=== PATIENT | female | born 1980 | race Caucasian/White ===

== ENCOUNTER → 2016-09-28 | Outpatient (CLI) | payer OTHER ==
--- NOTE | 2016-09-28 13:01 | XR ---
EXAMINATION TYPE: XR chest 2V DATE OF EXAM: 09/28/2016 COMPARISON: NONE HISTORY: Presurgical study. History of asthma. TECHNIQUE: Frontal and lateral views of the chest are obtained. FINDINGS: There is no focal air space opacity, pleural effusion, or pneumothorax seen. The cardiac silhouette size is within normal limits. The osseous structures are intact. Cholecystectomy clips a re noted. IMPRESSION: No acute cardiopulmonary process.
== END | disposition home or self-care (01) ==
LOC: RADXRMAIN 12:25
PROVIDERS: ATTEND Family Medicine
DX: Z01.811 Encounter for preprocedural respiratory examination (principal)
CPT/HCPCS: 71020

== ENCOUNTER → 2017-06-07 | Outpatient (CLI) | payer OTHER ==
--- NOTE | 2017-06-07 07:45 | US ---
EXAMINATION TYPE: US abdomen complete DATE OF EXAM: 06/07/2017 COMPARISON: NONE CLINICAL HISTORY: R11.0 nausea, R19.7 Diarrhea Unspecified. Pt states nausea and diarrhea x few month s/ GB removed approx 10 years ago EXAM MEASUREMENTS: Liver Length: 18.0 cm CBD: 1.0 cm Spleen: 10.1 cm Right Kidney: 9.8 x 4.4 x 4.5 cm Left Kidney: 10.9 x 5.1 x 5.0 cm Pancreas: wnl, tail obscured by overlying bowel gas Liver: Difficult to penetrate, heterogeneous, enlarged. This finding is most commonly related to hep atic steatosis and limits evaluation for underlying masses. Gallbladder: Surgically absent Evidence for sonographic Ward's sign: No CBD: post thomas Spleen: wnl Right Kidney: wnl, lower pole gassed out Left Kidney: wnl Upper IVC: wnl Abd Aorta: wnl The intrahepatic portion of the IVC and proximal abdominal aorta are within normal limits. The visu alized portions of the pancreas are homogenous. The spleen is unremarkable. Kidneys are symmetric a nd free of hydronephrosis. No renal lesions are seen. IMPRESSION: 1. Findings most commonly related to hepatic steatosis. Correlate with liver function tests. 2. Dilated common bile duct likely relates to the post cholecystectomy status.
[2017-06-08 06:03] LABS: EBV - EA (IgG) 8.5 U/mL (<9.0); EBV - VCA IgM <10.0 U/mL (<36.0)
== END | disposition home or self-care (01) ==
LOC: RADUSWWP 06:53
PROVIDERS: ATTEND Family Medicine
DX: K83.8 Other specified diseases of biliary tract (principal); R11.0 Nausea; R19.7 Diarrhea, unspecified; R53.83 Other fatigue; Z90.49 Acquired absence of other specified parts of digestive tract
CPT/HCPCS: 36415; 76700; 86663; 86664; 86665; 87801

== ENCOUNTER → 2018-01-07 | Outpatient (CLI) | payer OTHER ==
--- NOTE | 2018-01-07 16:12 | XR ---
EXAMINATION TYPE: XR lumbar spine 2 or 3V DATE OF EXAM: 01/07/2018 COMPARISON: 04/30/2008 HISTORY: Lumbar fusion TECHNIQUE: Three-view lumbar spine FINDINGS: Pedicle screws been placed L4-L5 and S1. Disc spaces are present L4-5 L5-S1. L1-L3 pedicles are intact. There 5 lumbar-type vertebral bodies. Remaining disc heights are preserved . Vertebral body heights are preserved. IMPRESSION: 1. Postsurgical changes L4-S1 discussed above.
== END ==
LOC: RADXRMAIN 11:13
PROVIDERS: ATTEND Neurological Surgery
DX: M43.26 Fusion of spine, lumbar region (principal); Z98.890 Other specified postprocedural states
CPT/HCPCS: 72100

== ENCOUNTER 2018-01-12 10:13 | Observation (INO) | payer OTHER ==
[2018-01-12] MEDS ORDERED: ASPIRIN 81 MG PO STA (10:38)
[2018-01-12] MEDS ORDERED: NITROGLYCERIN OINT 1 INCH/GM PACKET TOPICAL STA (10:38)
[2018-01-12] MEDS ORDERED: SODIUM CHLORIDE 0.9% 500 ML IV STA (10:38)
--- NOTE | 2018-01-12 10:41 | ED ---
General Adult HPI - General Chief complaint: Chest Pain Stated complaint: CHEST PAIN Time Seen by Provider: 01/12/18 10:15 Source: patient, RN notes reviewed Mode of arrival: wheelchair Limitations: no limitations - History of Present Illness Initial comments: This is a 37-year-old female who presents emergency Department with a past medical history significant for asthma and 2 back surgeries. Patient states he takes [place] for her back pain. Patient comes in today complaining of a heaviness in her chest as if someone was sitting on her chest. Patient states the pain started last night it has waxed and waned a little but nothing in particular seems to make it better or worse. Patient states the pain radiates to her left shoulder she is mildly short of breath and nauseated. Patient denies any vomiting. Patient denies any episodes of diaphoresis. Patient denies any recent fever chills or cough. Patient denies any palpitations. Patient denies any lightheadedness dizziness or near syncopal episode. Patient denies any headache patient denies numbness weakness. Patient denies abdominal pain. Patient denies any long trips or travel. Patient denies any calf tenderness or leg swelling - Related Data Home Medications Medication Instructions Recorded Confirmed Levothyroxine Sodium [Synthroid] 75 mcg PO QAM 08/26/14 12/21/14 Ergocalciferol [Vitamin D2 50,000 unit PO WE 12/13/14 12/21/14 (DRISDOL)] Cetirizine HCl [Zyrtec] 10 mg PO DAILY 12/21/14 12/21/14 Citalopram Hydrobromide [CeleXA] 40 mg PO DAILY 12/21/14 12/21/14 Montelukast [Singulair] 10 mg PO HS 12/21/14 12/21/14 buPROPion HCL [Bupropion Xl] 300 mg PO HS 12/21/14 12/21/14 Previous Rx's Medication Instructions Recorded HYDROcodone/APAP 5-325MG [[place] 1 each PO Q4HR PRN #30 tab 12/22/14 5-325] Ibuprofen [Motrin] 600 mg PO Q6HR PRN #60 tab 12/22/14 Allergies Allergy/AdvReac Type Severity Reaction Status Date / Time codeine AdvReac Nausea & Verified 01/12/18 10:22 Vomiting meperidine HCl [From Demerol] AdvReac Nausea & Verified 01/12/18 10:22 Vomiting Review of Systems ROS Statement: Those systems with pertinent positive or pertinent negative responses have been documented in the HPI. ROS Other: All systems not noted in ROS Statement are negative. Past Medical History Past Medical History: Asthma History of Any Multi-Drug Resistant Organisms: None Reported Past Surgical History: Back Surgery, Cholecystectomy, Tonsillectomy, Tubal Ligation Additional Past Surgical History / Comment(s): knee surgery Past Psychological History: Anxiety, Depression Smoking Status: Never smoker Past Alcohol Use History: Rare Past Drug Use History: None Reported General Exam - General Exam Comments Initial Comments: GENERAL: Patient is well-developed and well-nourished. Patient is nontoxic and well- hydrated and is in mild distress. ENT: Neck is soft and supple. No significant lymphadenopathy is noted. Oropharynx is clear. Moist mucous membranes. Neck has full range of motion without eliciting any pain. EYES: The sclera were anicteric and conjunctiva were pink and moist. Extraocular movements were intact and pupils were equal round and reactive to light. Eyelids were unremarkable. PULMONARY: Unlabored respirations. Good breath sounds bilaterally. No audible rales rhonchi or wheezing was noted. CARDIOVASCULAR: There is a regular rate and rhythm without any murmurs gallops or rubs. ABDOMEN: Soft and nontender with normal bowel sounds. No palpable organomegaly was noted. There is no palpable pulsatile mass. SKIN: Skin is clear with no lesions or rashes and otherwise unremarkable. NEUROLOGIC: Patient is alert and oriented x3. Cranial nerves II through XII are grossly intact. Motor and sensory are also intact. Normal speech, volume and content. Symmetrical smile. MUSCULOSKELETAL: Normal extremities with adequate strength and full range of motion. No lower extremity swelling or edema. No calf tenderness. LYMPHATICS: No significant lymphadenopathy is noted PSYCHIATRIC: Normal psychiatric evaluation. Limitations: no limitations Course Vital Signs 01/12/18 01/12/18 10:19 13:44 Temperature 98.1 F 98.0 F Pulse Rate 95 84 Respiratory 18 18 Rate Blood Pressure 124/80 101/59 O2 Sat by Pulse 97 95 Oximetry Medical Decision Making - Medical Decision Making EKG shows normal sinus rhythm at 89 bpm ND interval is 152 QRS is 84 QT interval 360 QTC is 438. No ST segment elevation or depression Chest x-ray shows no acute abnormalities. CT to rule out PE was negative for PE. I went back into reevaluate the patient on at least 3 occasions in all 3 times patient states she continued to have chest discomfort described as heaviness. I spoke with [facility] hospitalist agreed to admit the patient admitted the patient I consult cardiology I wrote admitting orders. - Lab Data Result diagrams: 01/12/18 10:57 01/12/18 10:57 Lab Results 01/12/18 01/12/18 01/12/18 Range/Units 10:57 10:57 10:57 WBC 6.0 (3.8-10.6) k/uL RBC 4.29 (3.80-5.40) m/uL Hgb 13.8 (11.4-16.0) gm/dL Hct 39.9 (34.0-46.0) % MCV 93.1 (80.0-100.0) fL MCH 32.1 (25.0-35.0) pg MCHC 34.5 (31.0-37.0) g/dL RDW 12.2 (11.5-15.5) % Plt Count 232 (150-450) k/uL Neutrophils % 58 % Lymphocytes % 30 % Monocytes % 6 % Eosinophils % 3 % Basophils % 1 % Neutrophils # 3.5 (1.3-7.7) k/uL Lymphocytes # 1.8 (1.0-4.8) k/uL Monocytes # 0.3 (0-1.0) k/uL Eosinophils # 0.2 (0-0.7) k/uL Basophils # 0.0 (0-0.2) k/uL PT (9.0-12.0) sec INR (<1.2) APTT (22.0-30.0) sec D-Dimer (<0.60) mg/L FEU Sodium 140 (137-145) mmol/L Potassium 4.2 (3.5-5.1) mmol/L Chloride 108 H (98-107) mmol/L Carbon Dioxide 26 (22-30) mmol/L Anion Gap 6 mmol/L BUN 9 (7-17) mg/dL Creatinine 0.78 (0.52-1.04) mg/dL Est GFR (CKD-EPI)AfAm >90 (>60 ml/min/1.73 sqM) Est GFR (CKD-EPI)NonAf >90 (>60 ml/min/1.73 sqM) Glucose 115 H (74-99) mg/dL Calcium 9.2 (8.4-10.2) mg/dL Magnesium 2.1 (1.6-2.3) mg/dL Total Bilirubin 0.6 (0.2-1.3) mg/dL AST 31 (14-36) U/L ALT 39 (9-52) U/L Alkaline Phosphatase 75 (38-126) U/L Total Creatine Kinase 61 (30-135) U/L CK-MB (CK-2) 0.7 (0.0-2.4) ng/mL CK-MB (CK-2) Rel Index 1.1 Troponin I <0.012 (0.000-0.034) ng/mL Total Protein 6.9 (6.3-8.2) g/dL Albumin 3.9 (3.5-5.0) g/dL Amylase 42 (30-110) U/L Lipase 71 (23-300) U/L 01/12/18 Range/Units 10:57 WBC (3.8-10.6) k/uL RBC (3.80-5.40) m/uL Hgb (11.4-16.0) gm/dL Hct (34.0-46.0) % MCV (80.0-100.0) fL MCH (25.0-35.0) pg MCHC (31.0-37.0) g/dL RDW (11.5-15.5) % Plt Count (150-450) k/uL Neutrophils % % Lymphocytes % % Monocytes % % Eosinophils % % Basophils % % Neutrophils # (1.3-7.7) k/uL Lymphocytes # (1.0-4.8) k/uL Monocytes # (0-1.0) k/uL Eosinophils # (0-0.7) k/uL Basophils # (0-0.2) k/uL PT 9.5 (9.0-12.0) sec INR 1.0 (<1.2) APTT 21.6 L (22.0-30.0) sec D-Dimer 0.60 H (<0.60) mg/L FEU Sodium (137-145) mmol/L Potassium (3.5-5.1) mmol/L Chloride (98-107) mmol/L Carbon Dioxide (22-30) mmol/L Anion Gap mmol/L BUN (7-17) mg/dL Creatinine (0.52-1.04) mg/dL Est GFR (CKD-EPI)AfAm (>60 ml/min/1.73 sqM) Est GFR (CKD-EPI)NonAf (>60 ml/min/1.73 sqM) Glucose (74-99) mg/dL Calcium (8.4-10.2) mg/dL Magnesium (1.6-2.3) mg/dL Total Bilirubin (0.2-1.3) mg/dL AST (14-36) U/L ALT (9-52) U/L Alkaline Phosphatase (38-126) U/L Total Creatine Kinase (30-135) U/L CK-MB (CK-2) (0.0-2.4) ng/mL CK-MB (CK-2) Rel Index Troponin I (0.000-0.034) ng/mL Total Protein (6.3-8.2) g/dL Albumin (3.5-5.0) g/dL Amylase (30-110) U/L Lipase (23-300) U/L Disposition Clinical Impression: Chest pain Disposition: ADMITTED IP TO THIS HOSP Referrals: Disha Reveles III, MD [Primary Care Provider] - 1-2 days Time of Disposition: 13:51
[2018-01-12 11:17] LABS: Basophils % (A) 1 %; Eosinophils # (A) 0.2 k/uL (0-0.7); Eosinophils % (A) 3 %; HCT 39.9 % (34.0-46.0); HGB 13.8 gm/dL (11.4-16.0); Lymphocytes # (A) 1.8 k/uL (1.0-4.8); Lymphocytes % (A) 30 %; MCH 32.1 pg (25.0-35.0); MCHC 34.5 g/dL (31.0-37.0); MCV 93.1 fL (80.0-100.0); Mean Platelet Volume 7.7; Monocytes # (A) 0.3 k/uL (0-1.0); Monocytes % (A) 6 %; Neutrophils # (A) 3.5 k/uL (1.3-7.7); Neutrophils % (A) 58 %; Platelet Count 232 k/uL (150-450); RBC 4.29 m/uL (3.80-5.40); RDW 12.2 % (11.5-15.5)
[2018-01-12 11:26] LABS: ALT 39 U/L (9-52); AST 31 U/L (14-36); Albumin 3.9 g/dL (3.5-5.0); Alkaline Phosphatase 75 U/L (38-126); Amylase 42 U/L (30-110); Anion Gap 6 mmol/L; Blood Urea Nitrogen 9 mg/dL (7-17); Calcium 9.2 mg/dL (8.4-10.2); Carbon Dioxide 26 mmol/L (22-30); Chloride 108 mmol/L (98-107); Glucose 115 mg/dL (74-99); Lipase 71 U/L (23-300); Magnesium 2.1 mg/dL (1.6-2.3); Potassium 4.2 mmol/L (3.5-5.1); Sodium 140 mmol/L (137-145); Total Bilirubin 0.6 mg/dL (0.2-1.3); Total Protein 6.9 g/dL (6.3-8.2)
[2018-01-12 11:33] LABS: Creatine Kinase 61 U/L (30-135)
[2018-01-12 11:46] LABS: Creatine Kinase MB 0.7 ng/mL (0.0-2.4); Troponin I <0.012 ng/mL (0.000-0.034)
--- NOTE | 2018-01-12 11:49 | XR ---
EXAMINATION TYPE: XR chest 2V DATE OF EXAM: 01/12/2018 COMPARISON: Prior chest 09/28/2016 HISTORY: Chest pain TECHNIQUE: Frontal and lateral views of the chest are obtained. FINDINGS: There is no focal air space opacity, pleural effusion, or pneumothorax seen. The cardiac silhouette size is within normal limits. The osseous structures are intact. Surgical clips present in the upper abdomen. There are overlying cardiac leads. IMPRESSION: No acute cardiopulmonary process.
[2018-01-12 12:25] LABS: Prothrombin Time 9.5 sec (9.0-12.0)
[2018-01-12 12:28] LABS: D-Dimer 0.6 mg/L FEU (<0.60); Partial Thromboplastin Time 21.6 sec (22.0-30.0)
--- NOTE | 2018-01-12 13:29 | CT ---
CT CHEST FOR PULMONARY EMBOLISM. EXAMINATION TYPE: CT chest angio for PE DATE OF EXAM: 01/12/2018 INDICATION: Chest pain CT DLP: 559 mGycm, Automated exposure control for dose reduction was used. CONTRAST: Patient injected with 69 mL of Isovue 370. COMPARISON: None TECHNIQUE: CT of the chest is performed on a spiral scan at 2 mm thick sections. Study is performed with intravenous contrast timed for evaluation for pulmonary embolism. This will limit additional po rtions of the evaluation. 3-D MIP images reconstructed by the technologist are reviewed on the compu ter in the coronal and sagittal planes. FINDINGS: No persistent filling defects are evident to suggest an acute pulmonary embolism. No mediastinal or hilar adenopathy enlarged by CT criteria is evident. The ascending aorta diameter at the level of the main pulmonary artery is 3.0 cm. The main pulmonary artery diameter at the bifur cation is 3.0 cm. Lung windows are clear. Limited CT section through the upper abdomen are unremarkable. IMPRESSIONS: 1. No acute pulmonary embolism.
[2018-01-12] MEDS ORDERED: NITROGLYCERIN SL TABS 0.4 MG TAB SUBLINGUAL PRN (13:57)
--- NOTE | 2018-01-12 15:05 | P.HPIM ---
History of Present Illness 37-year-old pleasant female came in with complaints of chest pain restarted yesterday constant with varying severity on and off in the day where is from sluggish status 10/19-08/19 radiating to the neck area patient had back surgeries in the past, no associated diaphoresis or shortness of breath no cough nonpleuritic not associated with food no worsening or relieving factors. Denied any lightheadedness dizziness. Pain is pressure-like sensation as a sharp in nature. Patient chest pain is reproducible. First set of troponin is negative EKG did not show any significant ST-T wave changes, sinus rhythm. CT angios the chest did not show any significant abnormality or pulmonary embolism Review of Systems REVIEW OF SYSTEMS: CONSTITUTIONAL: No fever, no malaise, no fatigue. HEENT: No recent visual problems or hearing problems. Denied any sore throat. CARDIOVASCULAR: No orthopnea, PND, no palpitations, no syncope. PULMONARY: No shortness of breath, no cough, no hemoptysis. GASTROINTESTINAL: No diarrhea, no nausea, no vomiting, no abdominal pain. Normoactive bowel sounds. NEUROLOGICAL: No headaches, no weakness, no numbness. HEMATOLOGICAL: Denies any bleeding or petechiae. GENITOURINARY: Denies any burning micturition, frequency, or urgency. MUSCULOSKELETAL/RHEUMATOLOGICAL: Denies any joint pain, swelling, or any muscle pain. ENDOCRINE: Denies any polyuria or polydipsia. The rest of the 14-point review of systems is negative. Past Medical History Past Medical History: Asthma History of Any Multi-Drug Resistant Organisms: None Reported Past Surgical History: Back Surgery, Cholecystectomy, Tonsillectomy, Tubal Ligation Additional Past Surgical History / Comment(s): knee surgery Past Psychological History: Anxiety, Depression Smoking Status: Never smoker Past Alcohol Use History: Rare Past Drug Use History: None Reported Medications and Allergies Home Medications Medication Instructions Recorded Confirmed Type Cetirizine HCl [Zyrtec] 10 mg PO DAILY 12/21/14 01/12/18 History Citalopram Hydrobromide [CeleXA] 40 mg PO DAILY 12/21/14 01/12/18 History Montelukast [Singulair] 10 mg PO HS 12/21/14 01/12/18 History buPROPion HCL [Bupropion Xl] 300 mg PO HS 12/21/14 01/12/18 History Levothyroxine Sodium [Synthroid] 100 mcg PO DAILY 01/12/18 01/12/18 History Allergies Allergy/AdvReac Type Severity Reaction Status Date / Time codeine AdvReac Nausea & Verified 01/12/18 14:15 Vomiting meperidine HCl [From Demerol] AdvReac Nausea & Verified 01/12/18 14:15 Vomiting Physical Exam Vitals: Vital Signs Temp Pulse Pulse Resp BP BP Pulse Ox 01/12/18 14:51 97.3 F L 80 18 110/67 95 01/12/18 13:44 98.0 F 84 18 101/59 95 01/12/18 10:19 98.1 F 95 18 124/80 97 Intake and Output 01/12/18 01/12/18 01/12/18 06:59 14:59 22:59 Other: Weight 102.5 kg PHYSICAL EXAMINATION: GENERAL: The patient is alert and oriented x3, not in any acute distress. Well developed, well nourished. HEENT: Pupils are round and equally reacting to light. EOMI. No scleral icterus. No conjunctival pallor. Normocephalic, atraumatic. No pharyngeal erythema. No thyromegaly. CARDIOVASCULAR: S1 and S2 present. No murmurs, rubs, or gallops. Reproducible chest pain PULMONARY: Chest is clear to auscultation, no wheezing or crackles. ABDOMEN: Soft, nontender, nondistended, normoactive bowel sounds. No palpable organomegaly. MUSCULOSKELETAL: No joint swelling or deformity. EXTREMITIES: No cyanosis, clubbing, or pedal edema. NEUROLOGICAL: Gross neurological examination did not reveal any focal deficits. SKIN: No rashes. Results CBC & Chem 7: 01/12/18 10:57 01/12/18 10:57 Labs: Abnormal Lab Results - Last 24 Hours (Table) 01/12/18 01/12/18 Range/Units 10:57 10:57 APTT 21.6 L (22.0-30.0) sec D-Dimer 0.60 H (<0.60) mg/L FEU Chloride 108 H (98-107) mmol/L Glucose 115 H (74-99) mg/dL Assessment and Plan Plan: -Chest pain we'll rule out acute coronary syndromes and unstable angina, patient chest pain appears to be musculoskeletal cardiology will evaluate the patient will repeat 2 more sets of troponins. Patient denied any family history of premature coronary artery disease -Asthma without any acute exacerbation -Anxiety and depression -Hypothyroidism continue with levothyroxine
[2018-01-12 15:09] VITALS: BMI 33.3
--- NOTE | 2018-01-12 15:43 | P.CRDCN ---
History of Present Illness History of present illness: This is a pleasant 37-year-old female with no significant past medical history she denies history of coronary artery disease, hypertension, dyslipidemia or diabetes mellitus. We've been asked to see in consultation for symptoms of chest pain. She states she developed a tight squeezing sensation of upper chest between shoulders started last night while watching TV. Pain radiates into left shoulder and into the left neck region. There are no specific aggravating or alleviating factors. She does describe some mild associated shortness of breath and ongoing nausea. The symptoms have been intermittent since they started last night. She denies palpitations, dizziness , vomiting or diaphoresis. She denies cough, fever or chills. At the time of my exam she is seen resting comfortably in bed with family at the bedside. She continues to complain of a dull ache sensation in the chest that is not made worse by deep inspiration or on palpation. EKG reveals sinus mechanism with no acute ST or T-wave abnormalities. Chest x-ray is negative for an acute cardiopulmonary process. CTA chest negative for pulmonary embolism with normal-appearing aorta. Laboratory data reviewed, hemoglobin 13.8, platelets 232, d-dimer 0.6, sodium 140, potassium 4.2, magnesium 2.1, creatinine 0.78, cardiac enzymes negative 1. She takes no daily cardiac medications and is never had a cardiac workup. Review of Systems At the time of my exam: CONSTITUTIONAL: Denies fever. Denies chills. EYES: Denies blurred vision. Denies vision changes. Denies eye pain. EARS, NOSE, MOUTH & THROAT: Denies headache. Denies sore throat. Denies ear pain. CARDIOVASCULAR: Complains of mild chest pain. Denies shortness of breath. Denies orthopnea. Denies PND. Denies palpitations. RESPIRATORY: Denies cough. GASTROINTESTINAL: Denies abdominal pain. Denies diarrhea. Denies constipation. Denies nausea. Denies vomiting. MUSCULOSKELETAL: Denies myalgias. INTEGUMENTARY: Denies pruitis. Denies rash. NEUROLOGIC: Denies numbness. Denies tingling. Denies weakness. PSYCHIATRIC: Denies anxiety. Denies depression. ENDOCRINE: Denies fatigue. Denies weight change. Denies polydipsia. Denies polyurina. GENITOURINARY: Denies burning, hematuria or urgency with micturation. HEMATOLOGIC: Denies history of anemia. Denies bleeding. Past Medical History Past Medical History: Asthma History of Any Multi-Drug Resistant Organisms: None Reported Past Surgical History: Back Surgery, Cholecystectomy, Tonsillectomy, Tubal Ligation Additional Past Surgical History / Comment(s): knee surgery Past Anesthesia/Blood Transfusion Reactions: No Reported Reaction Past Psychological History: Anxiety, Depression Smoking Status: Never smoker Past Alcohol Use History: Rare Past Drug Use History: None Reported Medications and Allergies Home Medications Medication Instructions Recorded Confirmed Type Cetirizine HCl [Zyrtec] 10 mg PO DAILY 12/21/14 01/12/18 History Citalopram Hydrobromide [CeleXA] 40 mg PO DAILY 12/21/14 01/12/18 History Montelukast [Singulair] 10 mg PO HS 12/21/14 01/12/18 History buPROPion HCL [Bupropion Xl] 300 mg PO HS 12/21/14 01/12/18 History Levothyroxine Sodium [Synthroid] 100 mcg PO DAILY 01/12/18 01/12/18 History Allergies Allergy/AdvReac Type Severity Reaction Status Date / Time codeine AdvReac Nausea & Verified 01/12/18 14:15 Vomiting meperidine HCl [From Demerol] AdvReac Nausea & Verified 01/12/18 14:15 Vomiting Physical Exam Vitals: Vital Signs Temp Pulse Pulse Resp BP BP Pulse Ox 01/12/18 15:17 80 18 01/12/18 14:51 97.3 F L 80 18 110/67 95 01/12/18 13:44 98.0 F 84 18 101/59 95 01/12/18 10:19 98.1 F 95 18 124/80 97 Intake and Output 01/12/18 01/12/18 01/12/18 06:59 14:59 22:59 Other: Voiding Method Toilet Weight 102.5 kg Blood presure 110/67 heart rate 80 afebrile maintaining oxygen saturation on room air. GENERAL: This is a 37-year-old female in no apparent distress at the time of my examination. Obese. HEENT: Head is atraumatic, normocephalic. Pupils are equal, round. Sclerae anicteric. Conjunctivae are clear. Mucous membranes of the mouth are moist. Neck is supple. There is no jugular venous distention. No carotid bruit is heard. LUNGS: Clear to auscultation no wheezes, rales or rhonchi. No chest wall tenderness is noted on palpation or with deep breathing. HEART: Regular rate and rhythm without murmurs, rubs or gallops. S1 and S2 heard. ABDOMEN: Soft, nontender. Bowel sounds are heard. No organomegaly noted. EXTREMITIES: No evidence of peripheral edema and no calf tenderness noted. VASCULAR: Radial and dorsalis pedis pulses palpated, no evidence of clubbing. NEUROLOGIC: Patient is awake, alert and oriented x3. Results 01/12/18 10:57 01/12/18 10:57 Cardiac Enzymes 01/12/18 01/12/18 Range/Units 10:57 10:57 AST 31 (14-36) U/L CK-MB (CK-2) 0.7 (0.0-2.4) ng/mL Troponin I <0.012 (0.000-0.034) ng/mL Coagulation 01/12/18 Range/Units 10:57 PT 9.5 (9.0-12.0) sec APTT 21.6 L (22.0-30.0) sec CBC 01/12/18 Range/Units 10:57 WBC 6.0 (3.8-10.6) k/uL RBC 4.29 (3.80-5.40) m/uL Hgb 13.8 (11.4-16.0) gm/dL Hct 39.9 (34.0-46.0) % Plt Count 232 (150-450) k/uL Comprehensive Metabolic Panel 01/12/18 Range/Units 10:57 Sodium 140 (137-145) mmol/L Potassium 4.2 (3.5-5.1) mmol/L Chloride 108 H (98-107) mmol/L Carbon Dioxide 26 (22-30) mmol/L BUN 9 (7-17) mg/dL Creatinine 0.78 (0.52-1.04) mg/dL Glucose 115 H (74-99) mg/dL Calcium 9.2 (8.4-10.2) mg/dL AST 31 (14-36) U/L ALT 39 (9-52) U/L Alkaline Phosphatase 75 (38-126) U/L Total Protein 6.9 (6.3-8.2) g/dL Albumin 3.9 (3.5-5.0) g/dL Current Medications Generic Name Dose Route Start Last Admin Trade Name Freq PRN Reason Stop Dose Admin Aspirin 325 mg 01/13/18 09:00 Aspirin PO DAILY [facility] Bupropion HCl 300 mg 01/12/18 21:00 Wellbutrin Xl PO HS [facility] Citalopram Hydrobromide 40 mg 01/13/18 09:00 Celexa PO DAILY [facility] Levothyroxine Sodium 100 mcg 01/13/18 06:30 Synthroid PO DAILY@0630 [facility] Loratadine 10 mg 01/13/18 09:00 Claritin PO DAILY [facility] Montelukast Sodium 10 mg 01/12/18 21:00 Singulair PO HS [facility] Nitroglycerin 1 inch 01/12/18 18:00 Nitro-Bid Oint TOPICAL Q6HR [facility] Nitroglycerin 0.4 mg 01/12/18 13:57 Nitrostat SUBLINGUAL Q5M PRN Chest Pain Intake and Output 01/12/18 01/12/18 01/12/18 06:59 14:59 22:59 Other: Voiding Method Toilet Weight 102.5 kg Patient Weight 01/13/18 06:59 Weight 102.5 kg 01/12/18 10:57 01/12/18 10:57 Assessment and Plan Assessment: ASSESSMENT Chest pain, atypical. Asthma Obesity, BMI 33.4 PLAN Continue to obtain serial cardiac enzymes to rule out an acute coronary event. Obtain 2-D echocardiogram and Doppler study to assess cardiac structure and function. If cardiac enzymes are unremarkable we will schedule for stress echocardiogram in the morning. Further recommendations to follow based upon clinical course. Thank you kindly for this consultation. Nurse Practitioner note has been reviewed, I agree with a documented findings and plan of care. Patient was seen and examined.
[2018-01-12 17:13] LABS: Creatine Kinase 55 U/L (30-135)
[2018-01-12 17:26] LABS: Creatine Kinase MB 0.5 ng/mL (0.0-2.4); Troponin I <0.012 ng/mL (0.000-0.034)
[2018-01-12] MEDS ORDERED: NITROGLYCERIN OINT 1 INCH/GM PACKET TOPICAL SCH (18:00)
[2018-01-12] MEDS: HYDROcodone/APAP 10-325MG 1 EACH TAB PO PRN ×2 (20:38→20:45)
[2018-01-12] MEDS ORDERED: LORATADINE 10 MG TAB PO SCH (21:00)
[2018-01-12] MEDS ORDERED: CITALOPRAM HYDROBROMIDE 20 MG TAB PO SCH (21:00)
[2018-01-12] MEDS ORDERED: buPROPion XL 300 MG TAB.ER.24H PO SCH (21:00)
[2018-01-12] MEDS ORDERED: MONTELUKAST 10 MG TAB PO SCH (21:00)
[2018-01-12 23:22] LABS: Creatine Kinase 53 U/L (30-135)
[2018-01-12 23:32] LABS: Creatine Kinase MB 0.4 ng/mL (0.0-2.4)
[2018-01-12 23:33] LABS: Troponin I <0.012 ng/mL (0.000-0.034)
[2018-01-13 04:05] LABS: Cholesterol 185 mg/dL (<200); HDL Cholesterol 39 mg/dL (40-60); LDL Cholesterol,Calculated 93 mg/dL (0-99); Triglycerides 263 mg/dL (<150)
[2018-01-13] MEDS ORDERED: LEVOTHYROXINE 100 MCG TAB PO SCH (06:30)
[2018-01-13 07:44] VITALS: RESP 16
[2018-01-13] MEDS: HYDROcodone/APAP 10-325MG 1 EACH TAB PO PRN (08:49)
[2018-01-13] MEDS ORDERED: CITALOPRAM HYDROBROMIDE 20 MG TAB PO SCH (09:00)
[2018-01-13] MEDS ORDERED: ASPIRIN 325 MG TAB PO SCH (09:00)
[2018-01-13] MEDS ORDERED: LORATADINE 10 MG TAB PO SCH (09:00)
--- NOTE | 2018-01-13 11:40 | ECHOF ---
Referral Reason:cp MEASUREMENTS -------- HEIGHT: 175.3 cm WEIGHT: 102.1 kg BP: 106/71 RVIDd: 3.2 cm (< 3.3) IVSd: 1.1 cm (0.6 - 1.1) LVIDd: 4.1 cm (3.9 - 5.3) LVPWd: 1.0 cm (0.6 - 1.1) IVSs: 1.4 cm LVIDs: 2.9 cm LVPWs: 1.3 cm LAESV Index (A-L): 8.56 ml/m Ao Diam: 3.2 cm (2.0 - 3.7) AV Cusp: 2.1 cm (1.5 - 2.6) LA Diam: 3.3 cm (2.7 - 3.8) EPSS: 0.5 cm MV E Prince: 0.70 m/s MV DecT: 290 ms MV A Prince: 0.60 m/s MV E/A Ratio: 1.16 RAP: 5.00 mmHg RVSP: 9.70 mmHg MV EF SLOPE: 136.35 mm/s (70 - 150) MV EXCURSION: 1.96 cm (> 18.000) FINDINGS -------- Sinus rhythm. This was a technically adequate study. The left ventricular size is normal. There is borderline concentric left ventricular hypertrophy. Overall left ventricular systolic function is normal with, an EF between 55 - 60 %. The right ventricle is normal in size and function. Normal LA size by volume 22+/-6 ml/m2. The right atrium is normal in size. The aortic valve is trileaflet, and appears structurally normal. No aortic stenosis or regurgitation. The mitral valve is normal. There is trace mitral regurgitation. Trace tricuspid regurgitation present. Right ventricular systolic pressure is normal at < 35 mmHg. The right ventricular systolic pressure, as measured by Doppler, is 9.70mmHg. Trace/mild (physiologic) pulmonic regurgitation. The aortic root size is normal. Normal inferior vena cava with normal inspiratory collapse consistent with estimated right atrial pre ssure of 5 mmHg. There is no pericardial effusion. CONCLUSIONS -------- 1. Sinus rhythm. 2. This was a technically adequate study. 3. The left ventricular size is normal. 4. There is borderline concentric left ventricular hypertrophy. 5. Overall left ventricular systolic function is normal with, an EF between 55 - 60 %. 6. Normal LA size by volume 22+/-6 ml/m2. 7. The aortic valve is trileaflet, and appears structurally normal. No aortic stenosis or regurgitati on. 8. There is trace mitral regurgitation. 9. Trace tricuspid regurgitation present. 10. Right ventricular systolic pressure is normal at < 35 mmHg. 11. Trace/mild (physiologic) pulmonic regurgitation. 12. The aortic root size is normal. 13. There is no pericardial effusion. [employer]ING OFFICER: Vel Chicas RDCS
[2018-01-13 11:58] VITALS: BP 108/73; PULSE 99; TEMP 98.4
--- NOTE | 2018-01-13 12:13 | ECHOS ---
STRESS ECHOCARDIOGRAM DATE OF SERVICE: 01/13/2018 INDICATIONS: Chest pain. MEDICATIONS: BASELINE HEART RATE: 97 BASELINE BLOOD PRESSURE: 97/59 MAXIMUM HEART RATE: 155 MAXIMUM BLOOD PRESSURE: 143/58 85% MPHR: 154 100% MPHR: 181 METS: 10.3 MAXIMUM STAGE REACHED: III TOTAL EXERCISE TIME: 9 minutes CLINICAL INFORMATION: Baseline rhythm is sinus mechanism, rate of 97, normal axis and intervals. Minor nonspecific ST-T wave changes. Baseline blood pressure 97/59 mmHg. Patient exercised on Sreedhar protocol for 9 minute reaching peak rate 155 beats per minute which is equal to 86% maximum predicted heart rate. Peak blood pressure 143/58 mmHg. Test was terminated secondary to fatigue. There was no chest pain. Electrocardiograph monitoring revealed no evidence of diagnostic ischemic ST deviation. Baseline echocardiogram revealed normal wall motion. At peak exercise, there was normal wall motion augmentation with no hypokinesis or dyskinesis. CONCLUSION: 1. Good exercise tolerance with normal electrocardiograph response to exercise. 2. Normal stress echocardiogram with no evidence of stress-induced ischemia. MMODL / IJN: [id number] /
--- NOTE | 2018-01-13 14:20 | P.PN ---
Subjective Patient is seen and examined in no acute distress. She can taste complaining of a dull ache noted in the chest. Upon further discussion she does state that she did do some heavy lifting and moving around her home. His prior to having this chest discomfort. Cardiac enzymes negative 3, LDL 93, HDL 39. Blood pressure 108/73 heart rate 99 afebrile maintaining oxygen saturation on room air. Repeat EKG and telemetry tracings have been unremarkable. Echocardiogram obtained reveals preserved left ventricular systolic function with ejection fraction 50-60%. Objective - Vital Signs Vital signs: Vital Signs Temp 98.4 F 01/13/18 11:56 Pulse 99 01/13/18 11:56 Resp 16 01/13/18 11:56 BP 108/73 01/13/18 11:56 Pulse Ox 97 01/13/18 11:56 Intake & Output 01/12/18 01/13/18 01/13/18 18:59 06:59 18:59 Intake Total 222 222 Balance 222 222 Weight 102.5 kg 102.058 kg Intake: Oral 222 222 Other: Voiding Method Toilet Toilet - Exam GENERAL: Well-appearing, well-nourished and in no acute distress. NECK: Supple without JVD or thyromegaly. LUNGS: Breath sounds clear to auscultation bilaterally. Respiration equal and unlabored. No wheezes, rales or rhonchi. HEART: Regular rate and rhythm without murmurs, rubs or gallops. S1 and S2 heard. EXTREMITIES: Normal range of motion, no edema. No clubbing or cyanosis. Peripheral pulses intact. - Labs CBC & Chem 7: 01/12/18 10:57 01/12/18 10:57 Labs: Abnormal Lab Results - Last 24 Hours (Table) 01/12/18 Range/Units 10:57 Triglycerides 263 H (<150) mg/dL HDL Cholesterol 39 L (40-60) mg/dL Assessment and Plan Assessment: ASSESSMENT Chest pain, atypical. Asthma Obesity, BMI 33.4 PLAN Proceed with stress echocardiogram to assess her chest induced cardiac ischemia. If stress test is normal she is stable from a cardiac perspective. Lifestyle modifications recommended for diet and exercise to lose weight. Follow up with primary care physician upon discharge. Nurse Practitioner note has been reviewed, I agree with a documented findings and plan of care. Patient was seen and examined.
--- NOTE | 2018-01-13 14:30 | P.DS ---
Providers Date of admission: 01/12/18 14:14 Attending physician: Kyara Ervin Consults: 01/12/18 13:58 Consult Physician Urgent Consulting Provider: [facility] Consult Reason/Comments: Chest pain Do you want consulting provider notified?: Yes Primary care physician: Disha Singh [facility] Hospital Course: 37-year-old doesn't female admitted with chest pain rule out acute Syndromes after Which Patient Underwent Stress Test Which Was Negative Patient the Chest Pain Either Is Either Musculoskeletal or Gastroesophageal Reflux Disease Patient Will Be Prescribed M Gibson Proton Pump Inhibitor for 14 Days and Patient Was Asked to Use Tylenol for Musculoskeletal Chest Pain Will Be Discharged with Close Follow-Up with Primary Care Physician As an Outpatient. PHYSICAL EXAMINATION: GENERAL: The patient is alert and oriented x3, not in any acute distress. Well developed, well nourished. HEENT: Pupils are round and equally reacting to light. EOMI. No scleral icterus. No conjunctival pallor. Normocephalic, atraumatic. No pharyngeal erythema. No thyromegaly. CARDIOVASCULAR: S1 and S2 present. No murmurs, rubs, or gallops. PULMONARY: Chest is clear to auscultation, no wheezing or crackles. ABDOMEN: Soft, nontender, nondistended, normoactive bowel sounds. No palpable organomegaly. MUSCULOSKELETAL: No joint swelling or deformity. EXTREMITIES: No cyanosis, clubbing, or pedal edema. NEUROLOGICAL: Gross neurological examination did not reveal any focal deficits. SKIN: No rashes. For other chronic medical problems and hospitalization course please refer to my HPI Plan - Discharge Summary Discharge Rx Participant: No New Discharge Prescriptions: New Omeprazole [PriLOSEC] 40 mg PO -BRKFST #14 capsule. No Action Cetirizine HCl [Zyrtec] 10 mg PO HS Citalopram Hydrobromide [CeleXA] 40 mg PO HS Montelukast [Singulair] 10 mg PO HS buPROPion HCL [Bupropion Xl] 300 mg PO HS Levothyroxine Sodium [Synthroid] 100 mcg PO DAILY HYDROcodone/APAP 10-325MG [Joes 10-325] 1 tab PO Q6HR PRN PRN Reason: Pain Discharge Medication List Cetirizine HCl [Zyrtec] 10 mg PO HS 12/21/14 [History] Citalopram Hydrobromide [CeleXA] 40 mg PO HS 12/21/14 [History] Montelukast [Singulair] 10 mg PO HS 12/21/14 [History] buPROPion HCL [Bupropion Xl] 300 mg PO HS 12/21/14 [History] HYDROcodone/APAP 10-325MG [Joes 10-325] 1 tab PO Q6HR PRN 01/12/18 [History] Levothyroxine Sodium [Synthroid] 100 mcg PO DAILY 01/12/18 [History] Omeprazole [PriLOSEC] 40 mg PO MATTHEW-DARYLKFSCrystal #14 capsule. 01/13/18 [Rx] Follow up Appointment(s)/Referral(s): Disha Reveles III, MD [Primary Care Provider] - 3 Days Patient Instructions/Handouts: Chest Pain (DC) Discharge Disposition: HOME SELF-CARE
== END 2018-01-13 14:25 | disposition home or self-care (01) ==
LOC: EC 10:13 → 3OBS 14:14
PROVIDERS: ADMIT Internal Medicine; ATTEND Internal Medicine
DX: R07.89 Other chest pain (principal); K21.9 Gastro-esophageal reflux disease without esophagitis; J45.909 Unspecified asthma, uncomplicated; M54.9 Dorsalgia, unspecified; R06.02 Shortness of breath; R11.0 Nausea; E03.9 Hypothyroidism, unspecified; F32.9 Major depressive disorder, single episode, unspecified; F41.9 Anxiety disorder, unspecified; Z79.890 Hormone replacement therapy; Z79.899 Other long term (current) drug therapy; Z88.5 Allergy status to narcotic agent; Z90.49 Acquired absence of other specified parts of digestive tract; Z68.33 Body mass index [BMI] 33.0-33.9, adult; E66.9 Obesity, unspecified
CPT/HCPCS: 99285; 96360 ×2; 36415; 93005; 93306; 93351; 85379; 80061; 80053; 82150; 82550; 82553; 83690; 83735; 84484; 85025; 85610; 85730; 71046; 71275; G0378 ×2; Q9967

== ENCOUNTER → 2019-02-07 | Outpatient (CLI) | payer OTHER ==
--- NOTE | 2019-02-08 10:40 | MM ---
Reason for exam: screening (asymptomatic). Last mammogram was performed 4 years and 6 months ago. History: Took hormonal contraceptives for 5 years. Physical Findings: A clinical breast exam by your physician is recommended on an annual basis and results should be correlated with mammographic findings. MG 3D Screening Mammo W/Cad Bilateral CC and MLO view(s) were taken. Prior study comparison: August 15, 2014, bilateral MG screening mammo w CAD. August 03, 2008, bilateral diagnostic digital mammog. The breast tissue is heterogeneously dense. This may lower the sensitivity of mammography. There is no discrete abnormality. No significant changes when compared with prior studies. ASSESSMENT: Negative, BI-RAD 1 RECOMMENDATION: Routine screening mammogram of both breasts in 1 year.
== END ==
LOC: RADMAMWWP 07:15
PROVIDERS: ATTEND Obstetrics & Gynecology
DX: Z12.31 Encounter for screening mammogram for malignant neoplasm of breast (principal)
CPT/HCPCS: 77063; 77067

== ENCOUNTER → 2019-06-09 | Outpatient (CLI) | payer OTHER ==
--- NOTE | 2019-06-09 12:16 | XR ---
EXAMINATION TYPE: XR lumbar spine 2 or 3V DATE OF EXAM: 06/09/2019 CLINICAL HISTORY: Back pain. History of lumbar fusion TECHNIQUE: Frontal and lateral images of the lumbar spine are obtained. COMPARISON: 01/07/2018 FINDINGS: Surgical fusion has been performed from L3 through S1 with intervertebral disc cages. There are 5 lumbar type vertebral bodies identified. The lumbar spine shows satisfactory alignment withou t evidence of acute fracture or dislocation. Mild multilevel facet arthropathy at L1-L2 and L2-L3. Ve rtebral body heights and disk space heights are within normal limits. The overlying soft tissue appea rs unremarkable. Cholecystectomy clips are present. IMPRESSION: Known new vertebral body height loss or malalignment. No new hardware fracture.
== END | disposition home or self-care (01) ==
LOC: RADXRMAIN 11:38
PROVIDERS: ATTEND Neurological Surgery
DX: M43.26 Fusion of spine, lumbar region (principal)
CPT/HCPCS: 72100

== ENCOUNTER 2019-07-07 07:58 | Day surgery (SDC) | payer OTHER ==
[~2019-07-07 07:58] MED LIST: PREMYELOGRAM MEDICATION REVIEW 1 EACH MISC PO NR
[2019-07-07 08:21] VITALS: TEMP 97.9
[2019-07-07] MEDS ORDERED: DIAZEPAM 5 MG TAB PO STA (08:26)
--- NOTE | 2019-07-07 10:26 | CT ---
EXAMINATION TYPE: CT lumbar spine w con DATE OF EXAM: 07/07/2019 COMPARISON: Radiograph 06/09/2019 HISTORY: 39-year-old female Spinal stenosis. TECHNIQUE: Contiguous axial scanning of the lumbar spine performed after intrathecal contrast adminis tration. Please refer to myelogram report of the same day for further details. Coronal/sagittal recon structions performed. CT DLP: 914.2 mGycm Automated exposure control for dose reduction was used. FINDINGS: Suspect some underlying fatty infiltration of liver. Prominent caliber to the bile duct at 1.2 cm lik ernestina chronic postcholecystectomy status. Mild degenerative spurring at the bilateral SI joints. Postsurgical changes of L4-S1 posterior and interbody fusion. The surgical hardware is intact. No ret ropulsion of the interbody devices. Left-sided laminectomy change along the surgical levels. Vertebral body heights are preserved. Alignment is maintained. Conus medullaris is normal. Mild posterior disc bulge at L3-L4, above the fusion. No large focal disc herniation or spinal canal stenosis is evident. There seems to be some asymmetric soft tissue thickening within the left L5-S1 neuroforamen. Perineur al granulation tissue or sequestered disc fragment are both possibilities. Reference axial image 71. Some residual bony hyperostotic changes on the right mildly narrowing the right L5-S1 neuroforamen. IMPRESSION: 1. STATUS POST L4-S1 POSTERIOR AND INTERBODY FUSION WITH LEFT-SIDED LAMINECTOMIES. 2. NO FOCAL DISC HERNIATION OR SIGNIFICANT SPINAL CANAL STENOSIS. SOME RESIDUAL BONY HYPEROSTOTIC LILLY NGES ON THE RIGHT AT L5-S1 CAUSING MILD NEUROFORAMINAL NARROWING HERE. 3. ASYMMETRIC SOFT TISSUE THICKENING WITHIN THE LEFT L5-S1 NEUROFORAMEN OF UNCERTAIN SIGNIFICANCE. PE RINEURAL GRANULATION TISSUE AND SEQUESTERED DISC FRAGMENT ARE POSSIBLE CONSIDERATIONS. CORRELATE FOR ANY CORRESPONDING RADICULAR SYMPTOMS.
--- NOTE | 2019-07-07 10:58 | FL ---
EXAMINATION TYPE: FL myelogram lumbosacral DATE OF EXAM: 07/07/2019 HISTORY: Back pain, spinal stenosis Maximal barrier technique was utilized. The skin overlying the L3 transverse process was localized u nder fluoroscopy and the overlying skin prepped and draped. Lidocaine used for local anesthesia. 22 -gauge needle was advanced into the thecal sac under fluoroscopic guidance and cerebrospinal fluid wa s noted to return in the hub of the needle. Approximately 7 cc Isovue 300 M was injected intrathecal ly under intermittent fluoroscopic observation. 5 images verified needle placement. Overhead images were then obtained as well as a cross table lateral view. 3 intraoperative images document the procedure, 1 minute 24 seconds fluoroscopy time. The patient remained in stable condition, the needle was removed. Hemostasis achieved. No immediate complication. FINDINGS: Needle placement at L3. Posterior fusion changes are noted and intrathecal contrast ministration is v erified, see dictated report CT lumbar spine same date IMPRESSION: Lumbar myelogram, post myelographic CT pending.
[2019-07-07 14:15] VITALS: RESP 16
[2019-07-07 14:21] VITALS: BP 105/66; PULSE 84
== END 2019-07-07 14:34 | disposition home or self-care (01) ==
LOC: RADPROMAIN 07:58
PROVIDERS: ATTEND Neurological Surgery
DX: M48.07 Spinal stenosis, lumbosacral region (principal); Z98.1 Arthrodesis status; M48.061 Spinal stenosis, lumbar region without neurogenic claudication
CPT/HCPCS: 62304; 72132; Q9967

== ENCOUNTER → 2020-02-06 | Outpatient (CLI) | payer OTHER ==
[2020-02-06 20:45] LABS: INR <0.91 (0.90-1.11); Prothrombin Time <9.9 sec (9.9-11.9)
== END | disposition home or self-care (01) ==
LOC: LABWHC1 12:58
PROVIDERS: ATTEND Physician Assistant Medical
DX: Z01.818 Encounter for other preprocedural examination (principal)
CPT/HCPCS: 36415; 85610

== ENCOUNTER → 2020-06-21 | Outpatient (CLI) | payer OTHER ==
[2020-06-21 19:23] LABS: Basophils # (A) 0.05 X 10*3/uL (0.00-0.10); Basophils % (A) 0.5 %; Eosinophils # (A) 0.23 X 10*3/uL (0.04-0.35); Eosinophils % (A) 2.3 %; HCT 41.4 % (37.2-46.3); HGB 13.9 g/dL (12.0-15.0); Lymphocytes # (A) 2.35 X 10*3/uL (0.90-5.00); Lymphocytes % (A) 23.6 %; MCH 31.2 pg (27.0-32.0); MCHC 33.6 g/dL (32.0-37.0); MCV 92.8 fL (80.0-97.0); Monocytes # (A) 0.51 X 10*3/uL (0.20-1.00); Monocytes % (A) 5.1 %; Neutrophils # (A) 6.78 X 10*3/uL (1.80-7.70); Neutrophils % (A) 68.2 %; Platelet Count 271 X 10*3/uL (140-440); RBC 4.46 X 10*6/uL (4.10-5.20); RDW 11.5 % (11.5-14.5); WBC 9.95 X 10*3/uL (4.50-10.00)
[2020-06-21 20:41] LABS: INR 0.9 (0.90-1.11); Partial Thromboplastin Time 24.4 sec (23.5-31.0); Prothrombin Time 9.9 sec (9.9-11.9)
[2020-06-22 01:41] LABS: African American GFR (CKD) 80.5 (60.0-200.0); Albumin 4.6 g/dL (3.80-4.90); Anion Gap 13.2 mmol/L (4.00-12.00); Calcium 10.1 mg/dL (8.7-10.3); Carbon Dioxide 22.8 mmol/L (21.6-31.8); Globulin 2.3 g/dL (1.6-3.3); Non-African American GFR(CKD) 69.4 (60.0-200.0); Potassium 4.1 mmol/L (3.5-5.5); Total Bilirubin 0.6 mg/dL (0.2-1.2); Total Protein 6.9 g/dL (6.2-8.2)
[2020-06-22 01:49] LABS: Luteinizing Hormone 67.7 mIU/mL
== END | disposition home or self-care (01) ==
LOC: LABWHC1 11:25
PROVIDERS: ATTEND Physician Assistant Medical
DX: Z01.818 Encounter for other preprocedural examination (principal); F33.1 Major depressive disorder, recurrent, moderate; M51.36 Other intervertebral disc degeneration, lumbar region; M54.5 Low back pain; N95.1 Menopausal and female climacteric states; R53.83 Other fatigue
CPT/HCPCS: 36415; 80053; 82306; 82607; 83001; 83002; 84144; 84403; 84443; 85025; 85610; 85730

== ENCOUNTER → 2020-09-27 | Outpatient (CLI) | payer OTHER ==
[2020-09-27 23:31] LABS: INR 0.89 (0.90-1.11); Partial Thromboplastin Time 24.6 sec (23.5-31.0); Prothrombin Time 9.8 sec (9.9-11.9)
== END | disposition home or self-care (01) ==
LOC: LABWHC1 14:34
PROVIDERS: ATTEND Neurological Surgery
DX: Z01.812 Encounter for preprocedural laboratory examination (principal); Z51.81 Encounter for therapeutic drug level monitoring
CPT/HCPCS: 36415; 85610; 85730